=== PATIENT | male | born 1990 | race Caucasian/White ===

== ENCOUNTER 2016-08-20 20:38 | Inpatient (IN) | payer OTHER ==
--- NOTE | 2016-08-20 21:44 | HP ---
COWS - Scale Resting Pulse: 2= [place] 101-120 Sweatin=Flushed/Facial Moisture Restless Observation: 3= Extraneous Movement Pupil Size: 1= Pupils >than Normal Bone or Joint Aches: 1= Mild Discomfort Runny Nose/ Eye Tearin= Runny Nose/Eyes GI Upset > 30mins: 3= Vomiting/Diarrhea Tremor Observation: 1= Tremor [place], Not Seen Yawning Observation: 1= 1-2x During Session Anxiety or Irritability: 2=Irritable/Anxious Goose Flesh Skin: 0=Smooth Skin COWS Score: 18 Admission ROS S - HPI Chief Complaint: C/O WITHDRAWAL SX'S. SEEKING DETOX TXMENT Allergies/Adverse Reactions: Allergies Allergy/AdvReac Type Severity Reaction Status Date / Time No Known Drug Allergies Allergy Verified 08/20/16 21:38 bee stung Allergy Uncoded 08/20/16 21:38 History of Present Illness: 25 Y.O MALE WITH OPIOID/CANNABIS DEPENDENCE ADMITTED FOR DETOX. CLIENT IS KNOWN TO [facility]. SELF REFERRED. REPORTS LONGEST CLEAN TIME 3 YEARS. Exam Limitations: No Limitations - Ebola screening Have you traveled outside of the country in the last 21 days: No (N) Have you had contact with anyone from an Ebola affected area: No Do you have a fever: No - Review of Systems Constitutional: Loss of Appetite, Malaise, Night Sweats, Changes in sleep EENT: reports: Nose Congestion Respiratory: reports: No Symptoms reported Cardiac: reports: No Symptoms Reported GI: reports: Constipated, Nausea, Poor Appetite, Vomiting : reports: Other (HESISTANT) Musculoskeletal: reports: Back Pain, Joint Pain Integumentary: reports: Other (BURN ON FACE NOW SCABBED) Neuro: reports: No Symptoms reported Endocrine: reports: No Symptoms Reported Hematology: reports: No Symptoms Reported Psychiatric: reports: Anxious Other Systems: Reviewed and Negative Patient History - Patient Medical History Hx Anemia: No Hx Asthma: No Hx Chronic Obstructive Pulmonary Disease (COPD): No Hx Cancer: No Hx Cardiac Disorders: No Hx Congestive Heart Failure: No Hx Hypertension: No Hx Hypercholesterolemia: No Hx Pacemaker: No HX Cerebrovascular Accident: No Hx Seizures: No Hx Dementia: No Hx Diabetes: No Hx Gastrointestinal Disorders: No Hx Liver Disease: No Hx Genitourinary Disorders: No Hx Sexually Transmitted Disorders: No Hx Renal Disease (ESRD): No Hx Thyroid Disease: No Hx Human Immunodeficiency Virus (HIV): No Hx Hepatitis C: No Hx Depression: Yes Hx Suicide Attempt: No Hx Bipolar Disorder: No Hx Schizophrenia: No Other Medical History: SOCIAL ANXIETY, ADD - Patient Surgical History Past Surgical History: Yes Hx Orthopedic Surgery: Yes (BILAT KNEE REPLACEMENT L ARM SX) Anesthesia Reaction: No - PPD History Previous Implant?: Yes Documented Results: Negative w/proof Implanted On Prior [facility] Admission?: Yes Date: 12/04/15 Results: 0MM PPD to be Administered?: No - Smoking Cessation Smoking history: Current every day smoker Have you smoked in the past 12 months: Yes Aproximately how many cigarettes per day: 20 Cigars Per Day: 0 Hx Chewing Tobacco Use: No Initiated information on smoking cessation: Yes 'Breaking Loose' booklet given: 08/20/16 - Substance & Tx. History Hx Alcohol Use: No Hx Substance Use: Yes Substance Use Type: Heroin, Marijuana Hx Substance Use Treatment: Yes ([facility]) - Substances Abused HEROIN Route: Injection Frequency: Daily Amount used: 1 BUNDLE Age of first use: 20 Date of Last Use: 08/18/16 THC Route: Smoking Frequency: Daily Amount used: 1 GM Age of first use: 14 Date of Last Use: 08/18/16 Family Disease History - Family Disease History Family History: Denies Admission Physical Exam [facility] - Physical General Appearance: Yes: Disheveled, Tremorous, Anxious HEENTM: Yes: EOMI, Normocephalic, AKASH, Pharynx Normal Respiratory: Yes: Chest Non-Tender, Lungs Clear, Normal Breath Sounds, No Respiratory Distress, No Accessory Muscle Use Neck: Yes: No masses,lesions,Nodules, Supple, Trachea in good position Breast: Yes: Breast Exam Deferred Cardiology: Yes: Regular Rhythm, Regular Rate, S1, S2 Abdominal: Yes: Normal Bowel Sounds, Non Tender, Soft Genitourinary: Yes: Within Normal Limits Back: Yes: Normal Inspection Musculoskeletal: Yes: full range of Motion, Gait Steady Extremities: Yes: Normal Capillary Refill, Normal Range of Motion, Non-Tender, Tremors 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 intact, Fully Oriented, Alert, Motor Strength 5/5 Integumentary: Yes: Warm, Moist, Track Herman, Other (FLUSHED FACE SCATTERED ABRASIONS TO FACE ARMS AND LEGS) Lymphatic: Yes: Within Normal Limits - Diagnostic (1) Cannabis dependence Current Visit: Yes Status: Chronic (2) Opioid dependence with withdrawal Current Visit: Yes Status: Chronic (3) Nicotine dependence Current Visit: Yes Status: Chronic Qualifiers: Nicotine product type: cigarettes Substance use status: uncomplicated Qualified Code(s): F17.210 - Nicotine dependence, cigarettes, uncomplicated Cleared for Admission [facility] - Detox or Rehab S Level of Care: Medically Managed Detox Regimen/Protocol: Methadone [facility] Breath Alcohol Content Breath Alcohol Content: 0 Vital Signs - Vital Signs Vital Signs Refused: No Temperature: 99 F Temperature Source: Oral Pulse Rate: 101 Respiratory Rate: 20 Blood Pressure: 131/84 BP Location: Left Arm Blood Pressure Position: Sitting - Height Height: 6 ft - Weight Weight: 113.398 kg Weight Measurement Method: Stated by Patient Body Mass Index (BMI): 33.9 Urine Drug Screen - Test Device Lot Number: [id number] Expiration Date: 06/03/18 - Control Is Test Valid: Yes - Results Drug Screen Negative: No Urine Drug Screen Results: THC-Marijuana, OPI-Opiates
[2016-08-20 21:55] VITALS: BMI 33.9
[2016-08-20] MEDS ORDERED: LOPERAMIDE HCL 2 MG CAPSULE PO PRN (22:07)
[2016-08-20] MEDS ORDERED: P-EPHED 60MG/TRIPROLIDI 2.5MG TABLET PO PRN (22:07)
[2016-08-20] MEDS ORDERED: ACETAMINOPHEN 325 MG TABLET (FP) PO PRN (22:07)
[2016-08-20] MEDS ORDERED: METHADONE HCL 10 MG TABLET (FOR DETOX USE ONLY) PO ONE ×2 (22:07→23:00)
[2016-08-20] MEDS ORDERED: MENTHOL/PHENOL 1 EACH UD MM PRN (22:07)
[2016-08-20] MEDS ORDERED: diphenhydrAMINE HCL 50 MG CAPSULE PO PRN (22:07)
[2016-08-20] MEDS ORDERED: NICOTINE POLACRILEX 2 MG GUM BC PRN (22:07)
[2016-08-20] MEDS ORDERED: IBUPROFEN 400 MG TABLET (FP) PO PRN (22:07)
[2016-08-20] MEDS ORDERED: MAGNESIUM CITRATE 300 ML BOTTLE PO PRN (22:07)
[2016-08-20] MEDS ORDERED: guaiFENesin/D-METHORPHAN HB 10 ML UNIT-DOSE CUPS PO PRN (22:07)
[2016-08-20] MEDS ORDERED: MAGNESIUM HYDROX 2400MG/30ML ORAL SUSPENSION 30 ML CUP PO PRN (22:07)
[2016-08-20] MEDS ORDERED: MAG HYDROX/AL HYDROX/SIMETH 30 ML UNIT-DOSE CUP PO PRN (22:07)
[2016-08-20] MEDS: diazePAM 5 MG TABLET PO PRN (23:21)
[2016-08-21] MEDS: diazePAM 5 MG TABLET PO PRN ×5 (05:37→23:33)
--- NOTE | 2016-08-21 09:15 | CONSULT ---
[facility] Psychiatric Consult - Data Date of interview: 08/21/16 Admission source: Laura-referred Identifying data: Mr Clay is a 25 years old single male, unemployed supported by family, homeless seeking detox treatment for heroin and marijuana Substance Abuse History: Reports history of heroin and marijuana use. Started smoking marijuana at age 14, consumes one gram daily. Last smoked on 08/18/16 Medical History: Significant for orthsurgery for bilateral knee replacement and left arm. Smokes cigarettes 1ppd Psychiatric History: Reports being diagnosed with ADHD, MDD and Social Anxiety Disorder as a child. Reports one previous brief(15 hrs) psychiatric admission in early 2016 at [facility] for overdose on heroin. Claims that he was discharged after he was able to convince them that the overdose was accidental not to kil self as girlfriend wanted them to believe. Claims that he received treatment with Adderall and Paxil CR in the past. At present, reports feeling anxious and sleeping poorly. Physical/Sexual Abuse/Trauma History: Denies history of emotional, physical or sexual abuse as well as DV relationship Additional Comment: Reports history of multiple arrests including one felony conviction. Claims that felony was cleared out of his record. denies Mental Status Exam - Mental Status Exam Alert and Oriented to: Time, Place, Person Cognitive Function: Fair Patient Appearance: Well Groomed Mood: Anxious Affect: Appropriate Patient Behavior: Cooperative Speech Pattern: Clear Voice Loudness: Normal Thought Process: Intact, Goal Oriented Hallucinations: Denies Suicidal Ideation: Denies Homicidal Ideation: Denies Insight/Judgement: Poor Sleep: Poorly Appetite: Good Muscle strength/Tone: Normal Gait/Station: Normal Psychiatric Findings - Problem List ([place] 1, 2,3) (1) ADHD Current Visit: Yes Status: Acute (2) MDD (major depressive disorder) Current Visit: Yes Status: Acute (3) Social anxiety disorder of childhood Current Visit: Yes Status: Acute (4) Opioid dependence with withdrawal Current Visit: Yes Status: Chronic (5) Cannabis dependence Current Visit: Yes Status: Chronic (6) Nicotine dependence Current Visit: Yes Status: Chronic Qualifiers: Nicotine product type: cigarettes Substance use status: uncomplicated Qualified Code(s): F17.210 - Nicotine dependence, cigarettes, uncomplicated - Initial Treatment Plan Initial Treatment Plan: Continue inpatient detoxification
[2016-08-21] MEDS ORDERED: METHADONE HCL 10 MG TABLET (FOR DETOX USE ONLY) PO ONE (10:00)
[2016-08-21] MEDS: NICOTINE 21 MG/24 HOURS TOPICAL PATCH TD SCH (10:02)
[2016-08-21] MEDS: PRENATAL VITAMINS W/ FOLIC ACID TABLET (FP) PO SCH (10:02)
[2016-08-21] MEDS ORDERED: ZOLPIDEM TARTRATE 5 MG TABLET PO PRN (10:20)
--- NOTE | 2016-08-21 10:21 | EKG ---
Test Reason : Blood Pressure : / mmHG Vent. Rate : 093 BPM Atrial Rate : 093 BPM P-R Int : 162 ms QRS Dur : 102 ms QT Int : 354 ms P-R-T Axes : 069 -04 034 degrees QTc Int : 440 ms NORMAL SINUS RHYTHM POSSIBLE LEFT ATRIAL ENLARGEMENT INCOMPLETE RIGHT BUNDLE BRANCH BLOCK LEFT VENTRICULAR HYPERTROPHY ABNORMAL ECG NO PREVIOUS ECGS AVAILABLE Confirmed by VINCENT PALMER MD ([id number]) on 08/21/2016 10:21:29 AM Referred By: Confirmed By:VINCENT PALMER MD
[2016-08-21 10:29] LABS: MCH 29.1 pg (25.7-33.7); MCHC 33.2 g/dl (32.0-35.9); MEAN CELL VOLUME 87.8 fl (80-96); MEAN PLT VOLUME 9.2 fl (7.5-11.1); PLATELET COUNT 180 K/MM3 (134-434); RDW 13.5 % (11.9-15.9); WHITE BLOOD COUNT 8.1 K/mm3 (4.0-10.0)
[2016-08-21 10:37] LABS: ALBUMIN 4.1 g/dl (3.4-5.0); ANION GAP 8 (8-16); CALCIUM 8.6 mg/dL (8.5-10.1); CO2 34 mmol/L (21-32); GLUCOSE,RANDOM 109 mg/dL (74-106)
[2016-08-21 10:41] LABS: ALK PHOS 56 U/L (45-117); BILIRUBIN,TOTAL 0.8 mg/dL (0.2-1.0); CREATININE 0.7 mg/dL (0.7-1.3); SGOT/AST 66 U/L (15-37); SGPT/ALT 134 U/L (12-78)
[2016-08-21] MEDS ORDERED: POTASSIUM CHLORIDE TABS 20 MEQ TABLET.ER (FP) PO ONE (15:15)
--- NOTE | 2016-08-21 15:15 | PN ---
[facility] COWS - Scale Resting Pulse: 0= [place] 80 or Below Sweatin=Flushed/Facial Moisture Restless Observation: 3= Extraneous Movement Pupil Size: 0= Normal to Room Light Bone or Joint Aches: 2= Severe Diffuse Aches Runny Nose/ Eye Tearin= Runny Nose/Eyes GI Upset > 30mins: 2= Nausea/Diarrhea Tremor Observation of Outstretched Hands: 2= Slight Tremor Visible Yawning Observation: 1= 1-2x During Session Anxiety or Irritability: 2=Irritable/Anxious Goose Flesh Skin: 0=Smooth Skin COWS Score: 16 BHS Progress Note (SOAP) Subjective: Nausea, diarrhea, anxious, sweating, interrupted sleep Objective: 08/21/16 15:12 Last Vital Signs Temp Pulse Resp BP Pulse Ox 98.1 F 64 18 118/74 08/21/16 13:23 08/21/16 13:23 08/21/16 13:23 08/21/16 13:23 Laboratory Tests 08/21/16 08/21/16 08/21/16 07:50 07:50 07:50 WBC 8.1 RBC 4.96 Hgb 14.4 Hct 43.5 MCV 87.8 MCHC 33.2 RDW 13.5 Plt Count 180 MPV 9.2 Sodium 136 Potassium 3.4 L Chloride 94 L Carbon Dioxide 34 H D Anion Gap 8 BUN 7 D Creatinine 0.7 Creat Clearance w eGFR > 60 Random Glucose 109 H Calcium 8.6 Total Bilirubin 0.8 D AST 66 H D ALT 134 H D Alkaline Phosphatase 56 Total Protein 7.0 Albumin 4.1 RPR Titer Nonreactive Labs noted: K 3.4 Assessment: 08/21/16 15:13 Withdrawal symptoms Noted with mild hypokalemia Plan: Continue detox Mild hypokalemia: K DUR 40 meq x 1 dose
[2016-08-21 20:12] LABS: URINE APPEARANCE CLEAR; URINE BILIRUBIN NEGATIVE (NEGATIVE); URINE BLOOD NEGATIVE (NEGATIVE); URINE COLOR LTYELLOW; URINE GLUCOSE (UA) NEGATIVE (NEGATIVE); URINE KETONE NEGATIVE (NEGATIVE); URINE LEUK ESTERASE NEGATIVE (NEGATIVE); URINE NITRITE NEGATIVE (NEGATIVE); URINE PROTEIN NEGATIVE (NEGATIVE); URINE UROBILINOGEN NEGATIVE E.U./dl (0.2-1.0)
[2016-08-21] MEDS ORDERED: THIAMINE HCL 100 MG TABLET (FP) PO SCH (22:00)
[2016-08-22] MEDS: diazePAM 5 MG TABLET PO PRN ×2 (07:37→12:16)
[2016-08-22] MEDS ORDERED: METHADONE HCL 5 MG TABLET (FOR DETOX USE ONLY) PO ONE (10:00)
[2016-08-22] MEDS: PRENATAL VITAMINS W/ FOLIC ACID TABLET (FP) PO SCH (10:06)
[2016-08-22] MEDS: NICOTINE 21 MG/24 HOURS TOPICAL PATCH TD SCH (10:08)
[2016-08-22] MEDS ORDERED: ONDANSETRON *ODT* 4 MG TABLET SL PRN (11:25)
--- NOTE | 2016-08-22 11:28 | PN ---
S COWS - Scale Resting Pulse: 0= [place] 80 or Below Sweatin=Flushed/Facial Moisture Restless Observation: 1= Difficult to Sit Still Pupil Size: 0= Normal to Room Light Bone or Joint Aches: 2= Severe Diffuse Aches Runny Nose/ Eye Tearin= Runny Nose/Eyes GI Upset > 30mins: 2= Nausea/Diarrhea Tremor Observation of Outstretched Hands: 2= Slight Tremor Visible Yawning Observation: 1= 1-2x During Session Anxiety or Irritability: 2=Irritable/Anxious Goose Flesh Skin: 0=Smooth Skin COWS Score: 14 S Progress Note (SOAP) Subjective: Anxiety,tremors,sweating,interrupted sleep,nausea,restless,muscle aches. Objective: 08/22/16 11:27 Vital Signs - 8 hr 08/22/16 08/22/16 08/22/16 03:30 07:36 09:53 Temperature 97.9 F 96.8 F L Pulse Rate 47 L 73 Respiratory 18 18 20 Rate Blood Pressure 119/77 125/71 Laboratory Tests 08/21/16 08/21/16 08/21/16 07:50 07:50 07:50 WBC 8.1 RBC 4.96 Hgb 14.4 Hct 43.5 MCV 87.8 MCHC 33.2 RDW 13.5 Plt Count 180 MPV 9.2 Sodium 136 Potassium 3.4 L Chloride 94 L Carbon Dioxide 34 H D Anion Gap 8 BUN 7 D Creatinine 0.7 Creat Clearance w eGFR > 60 Random Glucose 109 H Calcium 8.6 Total Bilirubin 0.8 D AST 66 H D ALT 134 H D Alkaline Phosphatase 56 Total Protein 7.0 Albumin 4.1 Urine Color Urine Appearance Urine pH Ur Specific [place] Urine Protein Urine Glucose (UA) Urine Ketones Urine Blood Urine Nitrite Urine Bilirubin Urine Urobilinogen Ur Leukocyte Esterase RPR Titer Nonreactive 08/21/16 13:11 WBC RBC Hgb Hct MCV MCHC RDW Plt Count MPV Sodium Potassium Chloride Carbon Dioxide Anion Gap BUN Creatinine Creat Clearance w eGFR Random Glucose Calcium Total Bilirubin AST ALT Alkaline Phosphatase Total Protein Albumin Urine Color Ltyellow Urine Appearance Clear Urine pH 7.0 Ur Specific [place] 1.010 Urine Protein Negative Urine Glucose (UA) Negative Urine Ketones Negative Urine Blood Negative Urine Nitrite Negative Urine Bilirubin Negative Urine Urobilinogen Negative Ur Leukocyte Esterase Negative RPR Titer labs noted K+ 3.4 k-dur started Assessment: 08/22/16 11:28 Withdrawal sx. Plan: Continue detox
[2016-08-22 17:51] VITALS: BP 105/60; PULSE 57; TEMP 98.8
--- NOTE | 2016-08-22 21:21 | DS ---
[facility] Detox Discharge Summary Admission Date: 08/20/16 Discharge Date: 08/22/16 - History Present History: Cannabis Dependence, Opioid Dependence Additional Comments: PATIENT IS VERBALLY ABUSE AGGRESSIVE TOWARD STAFF AND PEERS PHYSICALLY THREATENING TO KILL, FOR THE SAFETY OF STAFF AND DETOX COMMUNITY, ADMINISTRATIVE DISCHARGED - Physical Exam Results Vital Signs: Vital Signs Temperature 98.8 F 08/22/16 17:50 Pulse Rate 57 L 08/22/16 17:50 Respiratory Rate 16 08/22/16 17:50 Blood Pressure 105/60 08/22/16 17:50 O2 Sat by Pulse Oximetry (%) Pertinent Admission Physical Exam Findings: WITHDRAWAL SX Laboratory Last Values WBC 8.1 K/mm3 (4.0-10.0) 08/21/16 07:50 RBC 4.96 M/mm3 (4.00-5.60) 08/21/16 07:50 Hgb 14.4 GM/dL (11.7-16.9) 08/21/16 07:50 Hct 43.5 % (35.4-49) 08/21/16 07:50 MCV 87.8 fl (80-96) 08/21/16 07:50 MCHC 33.2 g/dl (32.0-35.9) 08/21/16 07:50 RDW 13.5 % (11.9-15.9) 08/21/16 07:50 Plt Count 180 K/MM3 (134-434) 08/21/16 07:50 MPV 9.2 fl (7.5-11.1) 08/21/16 07:50 Sodium 136 mmol/L (136-145) 08/21/16 07:50 Potassium 3.4 mmol/L (3.5-5.1) L 08/21/16 07:50 Chloride 94 mmol/L (98-107) L 08/21/16 07:50 Carbon Dioxide 34 mmol/L (21-32) H D 08/21/16 07:50 Anion Gap 8 (8-16) 08/21/16 07:50 BUN 7 mg/dL (7-18) D 08/21/16 07:50 Creatinine 0.7 mg/dL (0.7-1.3) 08/21/16 07:50 Creat Clearance w eGFR > 60 (>60) 08/21/16 07:50 Random Glucose 109 mg/dL (74-106) H 08/21/16 07:50 Calcium 8.6 mg/dL (8.5-10.1) 08/21/16 07:50 Total Bilirubin 0.8 mg/dL (0.2-1.0) D 08/21/16 07:50 AST 66 U/L (15-37) H D 08/21/16 07:50 ALT 134 U/L (12-78) H D 08/21/16 07:50 Alkaline Phosphatase 56 U/L (45-117) 08/21/16 07:50 Total Protein 7.0 g/dl (6.4-8.2) 08/21/16 07:50 Albumin 4.1 g/dl (3.4-5.0) 08/21/16 07:50 Urine Color Ltyellow 08/21/16 13:11 Urine Appearance Clear 08/21/16 13:11 Urine pH 7.0 (5.0-8.0) 08/21/16 13:11 Ur Specific [place] 1.010 (1.005-1.025) 08/21/16 13:11 Urine Protein Negative (NEGATIVE) 08/21/16 13:11 Urine Glucose (UA) Negative (NEGATIVE) 08/21/16 13:11 Urine Ketones Negative (NEGATIVE) 08/21/16 13:11 Urine Blood Negative (NEGATIVE) 08/21/16 13:11 Urine Nitrite Negative (NEGATIVE) 08/21/16 13:11 Urine Bilirubin Negative (NEGATIVE) 08/21/16 13:11 Urine Urobilinogen Negative E.U./dl (0.2-1.0) 08/21/16 13:11 Ur Leukocyte Esterase Negative (NEGATIVE) 08/21/16 13:11 RPR Titer Nonreactive (NONREACTIVE) 08/21/16 07:50 Hepatitis C Antibody >11.0 s/co ratio (0.0-0.9) H 08/21/16 07:50 LAB NOTED - Treatment Hospital Course: Detox Protocol Followed, Responded well - Medication Discharge Medications: Ambulatory Orders Quetiapine Fumarate [Seroquel] 100 tab PO HS #30 tablet 12/02/15 - Diagnosis (1) Opioid dependence with withdrawal Status: Acute - AMA Did Patient Leave Against Medical Advice: No
[2016-08-23] MEDS ORDERED: METHADONE HCL 5 MG TABLET (FOR DETOX USE ONLY) PO ONE (10:00)
[2016-08-24] MEDS ORDERED: METHADONE HCL 10 MG TABLET (FOR DETOX USE ONLY) PO ONE (10:00)
[2016-08-25 00:06] LABS: HCV LOG 10 5.991 (.)
[2016-08-25] MEDS ORDERED: METHADONE HCL 5 MG TABLET (FOR DETOX USE ONLY) PO ONE (06:00)
== END 2016-08-22 18:15 | disposition home or self-care (01) | DRG 773 ==
LOC: YASAS 20:38 → Y3N 21:45
PROVIDERS: ADMIT Internal Medicine; ATTEND Internal Medicine
PROC: HZ2ZZZZ Detoxification Services for Substance Abuse Treatment (ICD-10-PCS; principal; 2016-08-20)
DX: F11.23 Opioid dependence with withdrawal (principal); F12.20 Cannabis dependence, uncomplicated; F17.210 Nicotine dependence, cigarettes, uncomplicated; F33.9 Major depressive disorder, recurrent, unspecified; F90.9 Attention-deficit hyperactivity disorder, unspecified type; F91.8 Other conduct disorders; F40.10 Social phobia, unspecified; E87.6 Hypokalemia; Z96.653 Presence of artificial knee joint, bilateral
CPT/HCPCS: 36415; 80053; 81003; 85027; 86593; 86803; 87522; 93005; 93010

== ENCOUNTER 2016-12-05 16:25 | Inpatient (IN) | payer OTHER ==
[2016-12-05 17:51] VITALS: BMI 31.6
[2016-12-05] MEDS ORDERED: diazePAM 5 MG TABLET PO SCH (22:00)
--- NOTE | 2016-12-05 22:51 | HP ---
COWS - Scale Resting Pulse: 0= [place] 80 or Below Sweatin=Flushed/Facial Moisture Restless Observation: 5= Unable to Sit Still Pupil Size: 1= Pupils >than Normal Bone or Joint Aches: 4=Acute Joint/Muscle Pain Runny Nose/ Eye Tearin= None GI Upset > 30mins: 3= Vomiting/Diarrhea Tremor Observation: 2= Slight Tremor Visible Yawning Observation: 0= None Anxiety or Irritability: 2=Irritable/Anxious Goose Flesh Skin: 0=Smooth Skin COWS Score: 19 CIWA Score - CIWA Score Nausea/Vomitin Muscle Tremors: 4-Moderate,w/Arms Extend Anxiety: 4-Mod. Anxious/Guarded Agitation: 4-Moderately Restless Paroxysmal Sweats: 3 Orientation: 0-Oriented Tacttile Disturbances: 0-None Auditory Disturbances: 0-None Visual Disturbances: 0-None Headache: 4-Moderately Severe CIWA-Ar Total Score: 22 Admission ROS S - HPI Chief Complaint: C/O ALCOHOL AND BENZO WITHDRAWAL. SEEKING DETOX TXMENT Allergies/Adverse Reactions: Allergies Allergy/AdvReac Type Severity Reaction Status Date / Time No Known Drug Allergies Allergy Verified 12/05/16 21:27 bee stung Allergy Uncoded 12/05/16 21:27 History of Present Illness: 26 Y.O. MALE WITH EXTENSIVE H/O OF SUBSTANCE ABUSE ADMITTED FOR ALCOHOLISM AND BENZO DEPENDENCE. SELF REFERRED. 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 DENIES ANY RECENT DETOX/ REHAB SERVICES DETOX: MORE THAN 10 X REHAB: MORE THAN 10 X Exam Limitations: No Limitations - Ebola screening Have you traveled outside of the country in the last 21 days: No Have you had contact with anyone from an Ebola affected area: No Have you been sick,other than usual withdrawal symptoms: No Do you have a fever: No - Review of Systems Constitutional: Chills, Loss of Appetite, Malaise, Night Sweats, Changes in sleep EENT: reports: No Symptoms Reported Respiratory: reports: No Symptoms reported Cardiac: reports: No Symptoms Reported GI: reports: Diarrhea, Nausea, Poor Appetite : reports: No Symptoms Reported Musculoskeletal: reports: Other (GENERALIZED BODY ACHES) Integumentary: reports: Other (BRUISING TO STRENUM) Neuro: reports: No Symptoms reported Endocrine: reports: No Symptoms Reported Hematology: reports: No Symptoms Reported Psychiatric: reports: Anxious Other Systems: Reviewed and Negative Patient History - Patient Medical History Hx Anemia: No Hx Asthma: No Hx Chronic Obstructive Pulmonary Disease (COPD): No Hx Cancer: No Hx Cardiac Disorders: No Hx Congestive Heart Failure: No Hx Hypertension: No Hx Hypercholesterolemia: No Hx Pacemaker: No HX Cerebrovascular Accident: No Hx Seizures: No Hx Dementia: No Hx Diabetes: No Hx Gastrointestinal Disorders: No Hx Liver Disease: No Hx Genitourinary Disorders: No Hx Sexually Transmitted Disorders: No Hx Renal Disease (ESRD): No Hx Thyroid Disease: No Hx Human Immunodeficiency Virus (HIV): No Hx Hepatitis C: No Hx Depression: Yes (NO MGMT) Hx Suicide Attempt: No Hx Bipolar Disorder: No Hx Schizophrenia: No - Patient Surgical History Past Surgical History: Yes Hx Neurologic Surgery: No Hx Cataract Extraction: No Hx Cardiac Surgery: No Hx Lung Surgery: No Hx Breast Surgery: No Hx Breast Biopsy: No Hx Abdominal Surgery: No Hx Appendectomy: No Hx Cholecystectomy: No Hx Genitourinary Surgery: No Hx Section: No Hx Orthopedic Surgery: Yes (BILAT KNEE REPLACEMENT L ARM SX) Anesthesia Reaction: No - PPD History Previous Implant?: Yes Documented Results: Negative w/o proof Date: 12/04/15 Results: 0MM PPD to be Administered?: Yes - Smoking Cessation Smoking history: Current every day smoker Have you smoked in the past 12 months: Yes Aproximately how many cigarettes per day: 20 Cigars Per Day: 0 Hx Chewing Tobacco Use: No Initiated information on smoking cessation: Yes 'Breaking Loose' booklet given: 12/05/16 - Substance & Tx. History Hx Alcohol Use: No Hx Substance Use: Yes Substance Use Type: Heroin, Tranquilizers (XANAX) Hx Substance Use Treatment: Yes ([facility]) - Substances Abused Heroin Route: Injection Frequency: Daily Amount used: 10 bags Age of first use: 20 Date of Last Use: 12/04/16 Alprazolam (Xanax) Route: Oral Frequency: Daily Amount used: 2.5mg Age of first use: 20 Date of Last Use: 12/04/16 Family Disease History - Family Disease History Family History: Denies Admission Physical Exam BHS - Vital Signs Vital Signs: Vital Signs - 24 hr 12/05/16 17:45 Temperature 97.2 F L Pulse Rate 73 Respiratory 18 Rate Blood Pressure 120/66 - Physical General Appearance: Yes: Appropriately Dressed, Mild Distress, Tremorous, Sweating, Anxious HEENTM: Yes: EOMI, Normocephalic, Normal Voice, Pharynx Normal Respiratory: Yes: Chest Non-Tender, Lungs Clear, Normal Breath Sounds, No Respiratory Distress, No Accessory Muscle Use Neck: Yes: No masses,lesions,Nodules, Supple, Trachea in good position Breast: Yes: Breast Exam Deferred Cardiology: Yes: Regular Rhythm, Regular Rate, S1, S2 Abdominal: Yes: Normal Bowel Sounds, Non Tender, Soft Genitourinary: Yes: Within Normal Limits Back: Yes: Within Normal Limits Musculoskeletal: Yes: full range of Motion, Gait Steady Extremities: Yes: Normal Capillary Refill, Non-Tender, Tremors Neurological: Yes: Fully Oriented, Alert, Motor Strength 5/5 Integumentary: Yes: Warm, Moist, Track Herman Lymphatic: Yes: Within Normal Limits - Diagnostic (1) Opioid dependence with withdrawal Current Visit: Yes Status: Chronic (2) Uncomplicated sedative, hypnotic or anxiolytic withdrawal Current Visit: Yes Status: Chronic (3) Nicotine dependence Current Visit: Yes Status: Chronic Qualifiers: Nicotine product type: cigarettes Substance use status: uncomplicated Qualified Code(s): F17.210 - Nicotine dependence, cigarettes, uncomplicated; F17.210 - Nicotine dependence, cigarettes, uncomplicated Cleared for Admission [facility] - Detox or Rehab [facility] Level of Care: Medically Managed Detox Regimen/Protocol: Methadone/Valium [facility] Breath Alcohol Content Breath Alcohol Content: 0 Urine Drug Screen - Results Drug Screen Negative: No Urine Drug Screen Results: THC-Marijuana, OPI-Opiates, BZO-Benzodiazepines, OXY- Oxycodone
[2016-12-05] MEDS ORDERED: MENTHOL/PHENOL 1 EACH UD MM PRN (22:55)
[2016-12-05] MEDS ORDERED: guaiFENesin/D-METHORPHAN HB 10 ML UNIT-DOSE CUPS PO PRN (22:55)
[2016-12-05] MEDS ORDERED: diazePAM 5 MG TABLET PO ONE (22:55)
[2016-12-05] MEDS ORDERED: METHADONE HCL 10 MG TABLET (FOR DETOX USE ONLY) PO ONE ×2 (22:55→23:00)
[2016-12-05] MEDS ORDERED: ACETAMINOPHEN 325 MG TABLET (FP) PO PRN (22:55)
[2016-12-05] MEDS ORDERED: MAGNESIUM CITRATE 300 ML BOTTLE PO PRN (22:55)
[2016-12-05] MEDS ORDERED: MAG HYDROX/AL HYDROX/SIMETH 30 ML UNIT-DOSE CUP PO PRN (22:55)
[2016-12-05] MEDS ORDERED: IBUPROFEN 400 MG TABLET (FP) PO PRN (22:55)
[2016-12-05] MEDS ORDERED: MAGNESIUM HYDROX 2400MG/30ML ORAL SUSPENSION 30 ML CUP PO PRN (22:55)
[2016-12-05] MEDS ORDERED: diazePAM 5 MG TABLET PO PRN (22:55)
[2016-12-05] MEDS ORDERED: NICOTINE POLACRILEX 2 MG GUM BC PRN (22:55)
[2016-12-05] MEDS ORDERED: hydrOXYzine PAMOATE 50 MG CAPSULE (FP) PO PRN (22:55)
[2016-12-05] MEDS ORDERED: P-EPHED 60MG/TRIPROLIDI 2.5MG TABLET PO PRN (22:55)
[2016-12-05] MEDS ORDERED: LOPERAMIDE HCL 2 MG CAPSULE PO PRN (22:55)
[2016-12-06] MEDS ORDERED: METHADONE HCL 10 MG TABLET (FOR DETOX USE ONLY) PO ONE ×3 (00:35→23:00)
[2016-12-06] MEDS ORDERED: diazePAM 5 MG TABLET PO ONE (00:35)
[2016-12-06 01:10] LABS: URINE APPEARANCE CLEAR; URINE BILIRUBIN NEGATIVE (NEGATIVE); URINE BLOOD NEGATIVE (NEGATIVE); URINE COLOR YELLOW; URINE GLUCOSE (UA) NEGATIVE (NEGATIVE); URINE KETONE NEGATIVE (NEGATIVE); URINE LEUK ESTERASE NEGATIVE (NEGATIVE); URINE NITRITE NEGATIVE (NEGATIVE); URINE PROTEIN NEGATIVE (NEGATIVE); URINE UROBILINOGEN NEGATIVE mg/dL (0.2-1.0)
[2016-12-06] MEDS: diphenhydrAMINE HCL 50 MG CAPSULE PO PRN ×2 (01:10→22:07)
[2016-12-06] MEDS: diazePAM 5 MG TABLET PO SCH ×3 (07:22→22:07)
[2016-12-06 09:45] LABS: MCH 28.5 pg (25.7-33.7); MEAN CELL VOLUME 86.4 fl (80-96); MEAN PLT VOLUME 9.1 fl (7.5-11.1); RDW 13.4 % (11.9-15.9); WHITE BLOOD COUNT 7.7 K/mm3 (4.0-10.0)
[2016-12-06] MEDS ORDERED: METHADONE HCL 10 MG TABLET (FOR DETOX USE ONLY) PO SCH (10:00)
[2016-12-06 10:01] LABS: ALBUMIN 3.6 g/dl (3.4-5.0); ALK PHOS 74 U/L (45-117); ANION GAP 7 (8-16); BILIRUBIN,TOTAL 0.3 mg/dL (0.2-1.0); CALCIUM 8.7 mg/dL (8.5-10.1); CO2 29 mmol/L (21-32); CREATININE 0.8 mg/dL (0.7-1.3); GLUCOSE,RANDOM 94 mg/dL (74-106); SGOT/AST 38 U/L (15-37); SGPT/ALT 57 U/L (12-78); TOT PROT 6.9 g/dl (6.4-8.2)
[2016-12-06] MEDS: NICOTINE 21 MG/24 HOURS TOPICAL PATCH TD SCH (10:05)
[2016-12-06] MEDS: PRENATAL VITAMINS W/ FOLIC ACID TABLET (FP) PO SCH (10:05)
[2016-12-06] MEDS: diazePAM 5 MG TABLET PO PRN ×2 (10:05→18:49)
[2016-12-06 11:41] LABS: PLATELET COMMENT2 NO CLUMPING NOTED; PLATELET COUNT 236 K/MM3 (134-434); PLATELET ESTIMATE ADEQUATE (NORMAL)
--- NOTE | 2016-12-06 12:24 | PN ---
[facility] CIWA - CIWA Score Nausea/Vomitin-No Nausea/No Vomiting Muscle Tremors: 4-Moderate,w/Arms Extend Anxiety: 4-Mod. Anxious/Guarded Agitation: 4-Moderately Restless Paroxysmal Sweats: 1-Minimal Palms Moist Orientation: 0-Oriented Tacttile Disturbances: 3-Moderate Itch/Numb/Burn Auditory Disturbances: 0-None Visual Disturbances: 0-None Headache: 0-None Present CIWA-Ar Total Score: 16 S COWS - Scale Resting Pulse: 1= [place] 81-100 Sweatin= Chills/Flushing Restless Observation: 3= Extraneous Movement Pupil Size: 2= Moderately Dilated Bone or Joint Aches: 4=Acute Joint/Muscle Pain Runny Nose/ Eye Tearin= Nasal Congestion GI Upset > 30mins: 1= Stomach Cramp Tremor Observation of Outstretched Hands: 1= Tremor [place], Not Seen Yawning Observation: 2= >3x During Session Anxiety or Irritability: 2=Irritable/Anxious Goose Flesh Skin: 0=Smooth Skin COWS Score: 18 [facility] Progress Note (SOAP) Subjective: "I AM DOPE SICK". C/O ANXIETY,SWEATS,HOT/COLD FLASHES,DIARRHEA. Objective: 12/06/16 12:23 Vital Signs Temperature 96.8 F L 12/06/16 09:10 Pulse Rate 81 12/06/16 09:10 Respiratory Rate 18 12/06/16 09:10 Blood Pressure 114/64 12/06/16 09:10 O2 Sat by Pulse Oximetry (%) Laboratory Last Values WBC 7.7 K/mm3 (4.0-10.0) 12/06/16 08:00 RBC 4.67 M/mm3 (4.00-5.60) 12/06/16 08:00 Hgb 13.3 GM/dL (11.7-16.9) 12/06/16 08:00 Hct 40.4 % (35.4-49) 12/06/16 08:00 MCV 86.4 fl (80-96) 12/06/16 08:00 MCH 28.5 pg (25.7-33.7) 12/06/16 08:00 MCHC 33.0 g/dl (32.0-35.9) 12/06/16 08:00 RDW 13.4 % (11.9-15.9) 12/06/16 08:00 Plt Count 236 K/MM3 (134-434) D 12/06/16 08:00 MPV 9.1 fl (7.5-11.1) 12/06/16 08:00 Platelet Estimate Adequate (NORMAL) 12/06/16 08:00 Platelet Comment No clotting detected 12/06/16 08:00 Platelet Comment No clumping noted 12/06/16 08:00 Sodium 136 mmol/L (136-145) 12/06/16 08:00 Potassium 3.5 mmol/L (3.5-5.1) 12/06/16 08:00 Chloride 100 mmol/L (98-107) 12/06/16 08:00 Carbon Dioxide 29 mmol/L (21-32) 12/06/16 08:00 Anion Gap 7 (8-16) L 12/06/16 08:00 BUN 7 mg/dL (7-18) 12/06/16 08:00 Creatinine 0.8 mg/dL (0.7-1.3) 12/06/16 08:00 Creat Clearance w eGFR > 60 (>60) 12/06/16 08:00 Random Glucose 94 mg/dL (74-106) 12/06/16 08:00 Calcium 8.7 mg/dL (8.5-10.1) 12/06/16 08:00 Total Bilirubin 0.3 mg/dL (0.2-1.0) D 12/06/16 08:00 AST 38 U/L (15-37) H D 12/06/16 08:00 ALT 57 U/L (12-78) D 12/06/16 08:00 Alkaline Phosphatase 74 U/L (45-117) D 12/06/16 08:00 Total Protein 6.9 g/dl (6.4-8.2) 12/06/16 08:00 Albumin 3.6 g/dl (3.4-5.0) 12/06/16 08:00 Urine Color Yellow 12/05/16 00:05 Urine Appearance Clear 12/05/16 00:05 Urine pH 6.0 (5.0-8.0) 12/05/16 00:05 Ur Specific [place] 1.010 (1.005-1.025) 12/05/16 00:05 Urine Protein Negative (NEGATIVE) 12/05/16 00:05 Urine Glucose (UA) Negative (NEGATIVE) 12/05/16 00:05 Urine Ketones Negative (NEGATIVE) 12/05/16 00:05 Urine Blood Negative (NEGATIVE) 12/05/16 00:05 Urine Nitrite Negative (NEGATIVE) 12/05/16 00:05 Urine Bilirubin Negative (NEGATIVE) 12/05/16 00:05 Urine Urobilinogen Negative mg/dL (0.2-1.0) 12/05/16 00:05 RPR Titer Nonreactive (NONREACTIVE) 12/06/16 08:00 Assessment: 12/06/16 12:23 WITHDRAWAL SX Plan: CONTINUE DETOX
--- NOTE | 2016-12-06 19:43 | CONSULT ---
[facility] Psychiatric Consult - Data Date of interview: 12/06/16 Admission source: [facility] Identifying data: Readmission to [facility] for this 26 y/o male seeking detox treatment on for heroin,cocaine,benzodiazepine and marijuana dependence.Patient is single,a father of one,domiciled,unemployed and dependent on his family for financial support. Substance Abuse History: Confirmed by patient in this session. Smoking Cessation. Smoking history: Current every day smoker. Have you smoked in the past 12 months: Yes. Aproximately how many cigarettes per day: 20. Cigars Per Day: 0. Hx Chewing Tobacco Use: No. Initiated information on smoking cessation : Yes. 'Breaking Loose' booklet given: 12/05/16. - Substance & Tx. History. Hx Alcohol Use: No. Hx Substance Use: Yes. Substance Use Type: Heroin, Tranquilizers (XANAX). Hx Substance Use Treatment: Yes ([facility]). - Substances Abused. Heroin. Route: Injection. Frequency: Daily. Amount used: 10 bags. Age of first use: 20. Date of Last Use: 12/04/16. Alprazolam (Xanax). Route: Oral. Frequency: Daily. Amount used: 2.5mg. Age of first use: 20. Date of Last Use: 12/04/16 Medical History: History of bilateral knee replacement. Psychiatric History: Patient denies history of psychiatric hospitalizations.Marginally cooperative historian.Mr Clay is already known to this facility (seen by [facility] psychiatrists on 12/01/16 + 08/21/16).Denies history of suicide attempts. Physical/Sexual Abuse/Trauma History: Denies. Additional Comment: Urine Drug Screen Results: THC-Marijuana, OPI-Opiates, BZO- Benzodiazepines, OXY-Oxycodone.Noted. Mental Status Exam - Mental Status Exam Alert and Oriented to: Time, Place, Person Cognitive Function: Good Patient Appearance: Well Groomed Mood: Withdrawn, Irritable Affect: Mood Congruent Patient Behavior: Fatigued, Uncooperative Speech Pattern: Clear Voice Loudness: Normal Thought Process: Intact, Goal Oriented Hallucinations: Denies Suicidal Ideation: Denies Homicidal Ideation: Denies Insight/Judgement: Poor Sleep: Fair Appetite: Good Muscle strength/Tone: Normal Gait/Station: Normal Psychiatric Findings - Problem List ([place] 1, 2,3) (1) Opioid dependence with withdrawal Current Visit: Yes Status: Acute (2) Uncomplicated sedative, hypnotic or anxiolytic withdrawal Current Visit: Yes Status: Acute (3) Cannabis dependence Current Visit: Yes Status: Acute (4) Nicotine dependence Current Visit: Yes Status: Acute Qualifiers: Nicotine product type: cigarettes Substance use status: in withdrawal Qualified Code(s): F17.213 - Nicotine dependence, cigarettes, with withdrawal; F17.213 - Nicotine dependence, cigarettes, with withdrawal (5) Substance induced mood disorder Current Visit: Yes Status: Acute - Initial Treatment Plan Initial Treatment Plan: Psychoeducation.Detoxification in progress.Observation.
--- NOTE | 2016-12-06 20:40 | EKG ---
Test Reason : Blood Pressure : / mmHG Vent. Rate : 069 BPM Atrial Rate : 069 BPM P-R Int : 198 ms QRS Dur : 106 ms QT Int : 376 ms P-R-T Axes : 039 015 026 degrees QTc Int : 402 ms SINUS RHYTHM WITH MARKED SINUS ARRHYTHMIA OTHERWISE NORMAL ECG WHEN COMPARED WITH ECG OF 20-AUG-2016 21:37, INCOMPLETE RIGHT BUNDLE BRANCH BLOCK IS NO LONGER PRESENT CLINICAL CORRELATION IS RECOMMENDED Confirmed by DARIANA OLIVAS MD ([id number]) on 12/06/2016 8:40:25 PM Referred By: Rojelio Alexander Confirmed By:DARIANA OLIVAS MD
[2016-12-06] MEDS: THIAMINE HCL 100 MG TABLET (FP) PO SCH (22:08)
[2016-12-07] MEDS: diazePAM 5 MG TABLET PO SCH ×3 (05:58→22:07)
[2016-12-07] MEDS ORDERED: diazePAM 5 MG TABLET PO SCH (10:00)
[2016-12-07] MEDS ORDERED: METHADONE HCL 5 MG TABLET (FOR DETOX USE ONLY) PO SCH (10:00)
[2016-12-07] MEDS ORDERED: METHADONE HCL 10 MG TABLET (FOR DETOX USE ONLY) PO SCH (10:00)
[2016-12-07] MEDS: PRENATAL VITAMINS W/ FOLIC ACID TABLET (FP) PO SCH (10:06)
[2016-12-07] MEDS: diazePAM 5 MG TABLET PO PRN ×2 (10:06→17:54)
[2016-12-07] MEDS: NICOTINE 21 MG/24 HOURS TOPICAL PATCH TD SCH (10:43)
--- NOTE | 2016-12-07 11:43 | PN ---
[facility] CIWA - CIWA Score Nausea/Vomitin-No Nausea/No Vomiting Muscle Tremors: 4-Moderate,w/Arms Extend Anxiety: 4-Mod. Anxious/Guarded Agitation: 4-Moderately Restless Paroxysmal Sweats: 1-Minimal Palms Moist Orientation: 0-Oriented Tacttile Disturbances: 3-Moderate Itch/Numb/Burn Auditory Disturbances: 0-None Visual Disturbances: 0-None Headache: 0-None Present CIWA-Ar Total Score: 16 S COWS - Scale Resting Pulse: 0= [place] 80 or Below Sweatin= Chills/Flushing Restless Observation: 3= Extraneous Movement Pupil Size: 2= Moderately Dilated Bone or Joint Aches: 4=Acute Joint/Muscle Pain Runny Nose/ Eye Tearin= Runny Nose/Eyes GI Upset > 30mins: 1= Stomach Cramp Tremor Observation of Outstretched Hands: 1= Tremor [place], Not Seen Yawning Observation: 1= 1-2x During Session Anxiety or Irritability: 2=Irritable/Anxious Goose Flesh Skin: 0=Smooth Skin COWS Score: 17 [facility] Progress Note (SOAP) Subjective: C/O "SICK"-ANXIETY,SWEATS/CHILLS,MUSCLE ACHES,TIREDNESS, DECREASED APPETITE. Objective: 12/07/16 11:39 Vital Signs 12/07/16 12/07/16 03:49 06:26 Temperature 96.6 F L Pulse Rate 40 L Respiratory 18 16 Rate Blood Pressure 92/55 Laboratory Last Values WBC 7.7 K/mm3 (4.0-10.0) 12/06/16 08:00 RBC 4.67 M/mm3 (4.00-5.60) 12/06/16 08:00 Hgb 13.3 GM/dL (11.7-16.9) 12/06/16 08:00 Hct 40.4 % (35.4-49) 12/06/16 08:00 MCV 86.4 fl (80-96) 12/06/16 08:00 MCH 28.5 pg (25.7-33.7) 12/06/16 08:00 MCHC 33.0 g/dl (32.0-35.9) 12/06/16 08:00 RDW 13.4 % (11.9-15.9) 12/06/16 08:00 Plt Count 236 K/MM3 (134-434) D 12/06/16 08:00 MPV 9.1 fl (7.5-11.1) 12/06/16 08:00 Platelet Estimate Adequate (NORMAL) 12/06/16 08:00 Platelet Comment No clotting detected 12/06/16 08:00 Platelet Comment No clumping noted 12/06/16 08:00 Sodium 136 mmol/L (136-145) 12/06/16 08:00 Potassium 3.5 mmol/L (3.5-5.1) 12/06/16 08:00 Chloride 100 mmol/L (98-107) 12/06/16 08:00 Carbon Dioxide 29 mmol/L (21-32) 12/06/16 08:00 Anion Gap 7 (8-16) L 12/06/16 08:00 BUN 7 mg/dL (7-18) 12/06/16 08:00 Creatinine 0.8 mg/dL (0.7-1.3) 12/06/16 08:00 Creat Clearance w eGFR > 60 (>60) 12/06/16 08:00 Random Glucose 94 mg/dL (74-106) 12/06/16 08:00 Calcium 8.7 mg/dL (8.5-10.1) 12/06/16 08:00 Total Bilirubin 0.3 mg/dL (0.2-1.0) D 12/06/16 08:00 AST 38 U/L (15-37) H D 12/06/16 08:00 ALT 57 U/L (12-78) D 12/06/16 08:00 Alkaline Phosphatase 74 U/L (45-117) D 12/06/16 08:00 Total Protein 6.9 g/dl (6.4-8.2) 12/06/16 08:00 Albumin 3.6 g/dl (3.4-5.0) 12/06/16 08:00 Urine Color Yellow 12/05/16 00:05 Urine Appearance Clear 12/05/16 00:05 Urine pH 6.0 (5.0-8.0) 12/05/16 00:05 Ur Specific [place] 1.010 (1.005-1.025) 12/05/16 00:05 Urine Protein Negative (NEGATIVE) 12/05/16 00:05 Urine Glucose (UA) Negative (NEGATIVE) 12/05/16 00:05 Urine Ketones Negative (NEGATIVE) 12/05/16 00:05 Urine Blood Negative (NEGATIVE) 12/05/16 00:05 Urine Nitrite Negative (NEGATIVE) 12/05/16 00:05 Urine Bilirubin Negative (NEGATIVE) 12/05/16 00:05 Urine Urobilinogen Negative mg/dL (0.2-1.0) 12/05/16 00:05 RPR Titer Nonreactive (NONREACTIVE) 12/06/16 08:00 Hepatitis C Antibody >11.0 s/co ratio (0.0-0.9) H 12/06/16 08:00 Assessment: 12/07/16 11:40 WITHDRAWAL SX Plan: CONTINUE DETOX INCREASE PO FLUIDS.
[2016-12-07] MEDS ORDERED: ZOLPIDEM TARTRATE 5 MG TABLET PO PRN (15:10)
--- NOTE | 2016-12-07 15:16 | PN ---
[facility] Progress Note Note: Asked to see the patient who is addressing ongoing sleeping difficulties.Patient was seen by psychiatrist yesterday.Attending's notes appreciated.Patient reports good effect from Ambien which has been prescribed to cope with sleeping difficulties in the past. Ambien 5mg po hs prn for insomnia will be started tonight. Will monitor progress.
[2016-12-07] MEDS: THIAMINE HCL 100 MG TABLET (FP) PO SCH (22:07)
[2016-12-08] MEDS: diazePAM 5 MG TABLET PO PRN ×2 (06:15→14:18)
[2016-12-08] MEDS ORDERED: diazePAM 5 MG TABLET PO SCH (10:00)
[2016-12-08] MEDS ORDERED: METHADONE HCL 5 MG TABLET (FOR DETOX USE ONLY) PO SCH (10:00)
[2016-12-08] MEDS: PRENATAL VITAMINS W/ FOLIC ACID TABLET (FP) PO SCH (10:07)
[2016-12-08] MEDS: NICOTINE 21 MG/24 HOURS TOPICAL PATCH TD SCH (10:07)
--- NOTE | 2016-12-08 10:30 | PN ---
S Progress Note (SOAP) Subjective: ALERT O X 3. PT OOB TODAY AMBULATING ON THE UNIT. STATES DECREASED WITHDRAWAL SX. Objective: 12/08/16 10:29 Vital Signs Temperature 97.9 F 12/08/16 08:57 Pulse Rate 76 12/08/16 08:57 Respiratory Rate 18 12/08/16 08:57 Blood Pressure 100/61 12/08/16 08:57 O2 Sat by Pulse Oximetry (%) Laboratory Last Values WBC 7.7 K/mm3 (4.0-10.0) 12/06/16 08:00 RBC 4.67 M/mm3 (4.00-5.60) 12/06/16 08:00 Hgb 13.3 GM/dL (11.7-16.9) 12/06/16 08:00 Hct 40.4 % (35.4-49) 12/06/16 08:00 MCV 86.4 fl (80-96) 12/06/16 08:00 MCH 28.5 pg (25.7-33.7) 12/06/16 08:00 MCHC 33.0 g/dl (32.0-35.9) 12/06/16 08:00 RDW 13.4 % (11.9-15.9) 12/06/16 08:00 Plt Count 236 K/MM3 (134-434) D 12/06/16 08:00 MPV 9.1 fl (7.5-11.1) 12/06/16 08:00 Platelet Estimate Adequate (NORMAL) 12/06/16 08:00 Platelet Comment No clotting detected 12/06/16 08:00 Platelet Comment No clumping noted 12/06/16 08:00 Sodium 136 mmol/L (136-145) 12/06/16 08:00 Potassium 3.5 mmol/L (3.5-5.1) 12/06/16 08:00 Chloride 100 mmol/L (98-107) 12/06/16 08:00 Carbon Dioxide 29 mmol/L (21-32) 12/06/16 08:00 Anion Gap 7 (8-16) L 12/06/16 08:00 BUN 7 mg/dL (7-18) 12/06/16 08:00 Creatinine 0.8 mg/dL (0.7-1.3) 12/06/16 08:00 Creat Clearance w eGFR > 60 (>60) 12/06/16 08:00 Random Glucose 94 mg/dL (74-106) 12/06/16 08:00 Calcium 8.7 mg/dL (8.5-10.1) 12/06/16 08:00 Total Bilirubin 0.3 mg/dL (0.2-1.0) D 12/06/16 08:00 AST 38 U/L (15-37) H D 12/06/16 08:00 ALT 57 U/L (12-78) D 12/06/16 08:00 Alkaline Phosphatase 74 U/L (45-117) D 12/06/16 08:00 Total Protein 6.9 g/dl (6.4-8.2) 12/06/16 08:00 Albumin 3.6 g/dl (3.4-5.0) 12/06/16 08:00 Urine Color Yellow 12/05/16 00:05 Urine Appearance Clear 12/05/16 00:05 Urine pH 6.0 (5.0-8.0) 12/05/16 00:05 Ur Specific [place] 1.010 (1.005-1.025) 12/05/16 00:05 Urine Protein Negative (NEGATIVE) 12/05/16 00:05 Urine Glucose (UA) Negative (NEGATIVE) 12/05/16 00:05 Urine Ketones Negative (NEGATIVE) 12/05/16 00:05 Urine Blood Negative (NEGATIVE) 12/05/16 00:05 Urine Nitrite Negative (NEGATIVE) 12/05/16 00:05 Urine Bilirubin Negative (NEGATIVE) 12/05/16 00:05 Urine Urobilinogen Negative mg/dL (0.2-1.0) 12/05/16 00:05 RPR Titer Nonreactive (NONREACTIVE) 12/06/16 08:00 Hepatitis C Antibody >11.0 s/co ratio (0.0-0.9) H 12/06/16 08:00 PT STATES HE WAS TOLD AT PREVIOUS OCCASION BY ANOTHER FACILITY THAT HIS TEST WAS REACTIVE BUT DID NOT FOLLOW UP FOR FURTHER CONFIRMATORY TEST. PT WAS REMINDED TO FOLLOW UP POST SCREENING WITH HIS PCP. Assessment: 12/08/16 10:29 WITHDRAWAL SX Plan: CONTINUE DETOX
[2016-12-08 12:38] VITALS: BP 109/51; PULSE 58; TEMP 97.8
--- NOTE | 2016-12-08 22:20 | DS ---
[facility] Detox Discharge Summary Admission Date: 12/05/16 Discharge Date: 12/08/16 - History Present History: Opioid Dependence, Sedative Dependence Additional Comments: received nurse call that the patient wants to leave the facility, refuses to wait face to face with the provider Pertinent Past History: withdrawal sx Laboratory Last Values WBC 7.7 K/mm3 (4.0-10.0) 12/06/16 08:00 RBC 4.67 M/mm3 (4.00-5.60) 12/06/16 08:00 Hgb 13.3 GM/dL (11.7-16.9) 12/06/16 08:00 Hct 40.4 % (35.4-49) 12/06/16 08:00 MCV 86.4 fl (80-96) 12/06/16 08:00 MCH 28.5 pg (25.7-33.7) 12/06/16 08:00 MCHC 33.0 g/dl (32.0-35.9) 12/06/16 08:00 RDW 13.4 % (11.9-15.9) 12/06/16 08:00 Plt Count 236 K/MM3 (134-434) D 12/06/16 08:00 MPV 9.1 fl (7.5-11.1) 12/06/16 08:00 Platelet Estimate Adequate (NORMAL) 12/06/16 08:00 Platelet Comment No clotting detected 12/06/16 08:00 Platelet Comment No clumping noted 12/06/16 08:00 Sodium 136 mmol/L (136-145) 12/06/16 08:00 Potassium 3.5 mmol/L (3.5-5.1) 12/06/16 08:00 Chloride 100 mmol/L (98-107) 12/06/16 08:00 Carbon Dioxide 29 mmol/L (21-32) 12/06/16 08:00 Anion Gap 7 (8-16) L 12/06/16 08:00 BUN 7 mg/dL (7-18) 12/06/16 08:00 Creatinine 0.8 mg/dL (0.7-1.3) 12/06/16 08:00 Creat Clearance w eGFR > 60 (>60) 12/06/16 08:00 Random Glucose 94 mg/dL (74-106) 12/06/16 08:00 Calcium 8.7 mg/dL (8.5-10.1) 12/06/16 08:00 Total Bilirubin 0.3 mg/dL (0.2-1.0) D 12/06/16 08:00 AST 38 U/L (15-37) H D 12/06/16 08:00 ALT 57 U/L (12-78) D 12/06/16 08:00 Alkaline Phosphatase 74 U/L (45-117) D 12/06/16 08:00 Total Protein 6.9 g/dl (6.4-8.2) 12/06/16 08:00 Albumin 3.6 g/dl (3.4-5.0) 12/06/16 08:00 Urine Color Yellow 12/05/16 00:05 Urine Appearance Clear 12/05/16 00:05 Urine pH 6.0 (5.0-8.0) 12/05/16 00:05 Ur Specific [place] 1.010 (1.005-1.025) 12/05/16 00:05 Urine Protein Negative (NEGATIVE) 12/05/16 00:05 Urine Glucose (UA) Negative (NEGATIVE) 12/05/16 00:05 Urine Ketones Negative (NEGATIVE) 12/05/16 00:05 Urine Blood Negative (NEGATIVE) 12/05/16 00:05 Urine Nitrite Negative (NEGATIVE) 12/05/16 00:05 Urine Bilirubin Negative (NEGATIVE) 12/05/16 00:05 Urine Urobilinogen Negative mg/dL (0.2-1.0) 12/05/16 00:05 RPR Titer Nonreactive (NONREACTIVE) 12/06/16 08:00 Hepatitis C Antibody >11.0 s/co ratio (0.0-0.9) H 12/06/16 08:00 lab noted - Physical Exam Results Vital Signs: Vital Signs Temperature 97.8 F 12/08/16 12:37 Pulse Rate 58 L 12/08/16 12:37 Respiratory Rate 18 12/08/16 12:37 Blood Pressure 109/51 12/08/16 12:37 O2 Sat by Pulse Oximetry (%) - Treatment Hospital Course: Detox Protocol Followed, Responded well - Medication Discharge Medications: Ambulatory Orders Quetiapine Fumarate [Seroquel] 100 tab PO HS #30 tablet 12/02/15 - Diagnosis (1) Hepatitis C antibody test positive Status: Chronic (2) Nicotine dependence Status: Acute Qualifiers: Nicotine product type: cigarettes Substance use status: in withdrawal Qualified Code(s): F17.213 - Nicotine dependence, cigarettes, with withdrawal; F17.213 - Nicotine dependence, cigarettes, with withdrawal (3) Opioid dependence with withdrawal Status: Acute (4) Uncomplicated sedative, hypnotic or anxiolytic withdrawal Status: Acute - AMA Did Patient Leave Against Medical Advice: Yes
[2016-12-09] MEDS ORDERED: METHADONE HCL 10 MG TABLET (FOR DETOX USE ONLY) PO SCH (10:00)
[2016-12-09] MEDS ORDERED: diazePAM 5 MG TABLET PO SCH (10:00)
[2016-12-10] MEDS ORDERED: METHADONE HCL 5 MG TABLET (FOR DETOX USE ONLY) PO SCH (06:00)
[2016-12-10] MEDS ORDERED: diazePAM 5 MG TABLET PO SCH (10:00)
[2016-12-10] MEDS ORDERED: METHADONE HCL 10 MG TABLET (FOR DETOX USE ONLY) PO SCH (10:00)
[2016-12-11] MEDS ORDERED: METHADONE HCL 5 MG TABLET (FOR DETOX USE ONLY) PO SCH (06:00)
[2016-12-12 00:06] LABS: HCV LOG 10 5.245 (.)
== END 2016-12-08 17:15 | disposition left against medical advice (07) | DRG 770 ==
LOC: YASAS 16:25 → Y3N 21:56
PROVIDERS: ADMIT Internal Medicine; ATTEND Internal Medicine
PROC: HZ2ZZZZ Detoxification Services for Substance Abuse Treatment (ICD-10-PCS; principal; 2016-12-05)
DX: F11.23 Opioid dependence with withdrawal (principal); F13.230 Sedative, hypnotic or anxiolytic dependence with withdrawal, uncomplicated; F12.20 Cannabis dependence, uncomplicated; F17.213 Nicotine dependence, cigarettes, with withdrawal; B18.2 Chronic viral hepatitis C; Z96.653 Presence of artificial knee joint, bilateral; Z91.038 Other insect allergy status
CPT/HCPCS: 36415; 80053; 81003; 85027; 86593; 86803; 87522; 93005; 93010

== ENCOUNTER 2019-04-21 13:52 | Inpatient (IN) | payer OTHER ==
--- NOTE | 2019-04-21 17:13 | BHS.RME ---
Substance Use & Tx History - Substance Use History Opiates (Heroin) Substance amount: 2 bundles Frequency of use: Daily Substance route: Injection (ex: intravenous or skin popping) Date of Last Use: 04/21/19 Benzodiazepines Substance amount: valium 1-2 tabs Frequency of use: Less than 3 times per week Cannabis Substance amount: 1/2 gram Frequency of use: Daily - Last Treatment Where was last treatment: [facility] (was in methadone program in [place]- lost job, lost house and has no insurance for [place]) Physical/Psych/Mental Status - Behavior General Behavior: Increased activity (restlessness, agitation) Eye Contact: Normal - Cooperativeness Cooperativeness: Cooperative - Physical Health Problems Is patient presently having any pain?: No Does patient presently have any injuries (include location): No Does patient currently have a fever: No Is patient : No COWS - Scale Resting Pulse: 2= [place] 101-120 Sweatin= Chills/Flushing Restless Observation: 3= Extraneous Movement Pupil Size: 1= Pupils >than Normal Bone or Joint Aches: 2= Severe Diffuse Aches Runny Nose/ Eye Tearin= Nasal Congestion GI Upset > 30mins: 1= Stomach Cramp Tremor Observation: 1= Tremor [place], Not Seen Yawning Observation: 1= 1-2x During Session Anxiety or Irritability: 1=Feels Anxious/Irritable Goose Flesh Skin: 0=Smooth Skin COWS Score: 14 Treatment Recommendation - Level of Care Level of Care: Acute Medical
--- NOTE | 2019-04-21 19:12 | HP ---
COWS - Scale Resting Pulse: 2= [place] 101-120 Sweatin= Chills/Flushing Restless Observation: 3= Extraneous Movement Pupil Size: 1= Pupils >than Normal Bone or Joint Aches: 2= Severe Diffuse Aches Runny Nose/ Eye Tearin= Nasal Congestion GI Upset > 30mins: 1= Stomach Cramp Tremor Observation: 1= Tremor [place], Not Seen Yawning Observation: 1= 1-2x During Session Anxiety or Irritability: 1=Feels Anxious/Irritable Goose Flesh Skin: 0=Smooth Skin COWS Score: 14 CIWA Score - Admission Criteria OASAS Guidelines: Admission for Medically Managed Detox: Requires at least one of the followin. CIWA greater than 12 2. Seizures within the past 24 hours 3. Delirium tremens within the past 24 hours 4. Hallucinations within the past 24 hours 5. Acute intervention needed for co occurring medical disorder 6. Acute intervention needed for co occurring psychiatric disorder 7. Severe withdrawal that cannot be handled at a lower level of care (continued vomiting, continued diarrhea, abnormal vital signs) requiring intravenous medication and/or fluids 8. Admitting History and Physical - Admission Chief Complaint: i need help to stop using heroin,xanax,marijuana History of Present Illness: this 28 years old male with heroin,.xanax,marijuana dependence,seeking detox, last detox 03/2019 first time to this facility History Source: Patient Limitations to Obtaining History: No Limitations - Past Medical History Psych: Yes: Anxiety (adhd), Depression Dermatology: Yes: Cellulitis (right hand) - Smoking History Smoking history: Current every day smoker Have you smoked in the past 12 months: Yes Aproximately how many cigarettes per day: 20 - Alcohol/Substance Use Hx Alcohol Use: No History of Substance Use: reports: Heroin, Marijuana, Tranquilizers - Social History Usual Living Arrangement: Yes: With Parent Occupation: unemployed History of Recent Travel: No Admission ROS S - HPI Chief Complaint: i need help to stop using heroin,xanax,marijuana Allergies/Adverse Reactions: Allergies Allergy/AdvReac Type Severity Reaction Status Date / Time No Known Drug Allergies Allergy Verified 04/21/19 19:19 bee stung Allergy Uncoded 04/21/19 19:19 History of Present Illness: this 28 years old male with heroin,xanax,marijuana dependence,seeking detox, withdrawal symptom denied seizure denied syncope nicotine 1 pack.day iv drugs users swelling with erythema right hand for 2 days longest period of sobriety for 2 and half years plan for out patient,suboxone Exam Limitations: No Limitations - Ebola screening Have you traveled outside of the country in the last 21 days: No Have you had contact with anyone from an Ebola affected area: No Have you been sick,other than usual withdrawal symptoms: No Do you have a fever: No - Review of Systems Constitutional: Chills, Loss of Appetite, Malaise, Night Sweats, Changes in sleep, Weakness EENT: reports: Tearing, Nose Congestion Respiratory: reports: No Symptoms reported Cardiac: reports: No Symptoms Reported GI: reports: Diarrhea, Nausea, Abdominal cramping : reports: No Symptoms Reported Musculoskeletal: reports: Back Pain, Joint Pain, Muscle Pain Integumentary: reports: Dryness Endocrine: reports: No Symptoms Reported Hematology: reports: No Symptoms Reported Psychiatric: reports: No Sypmtoms Reported, Judgement Intact, Mood/Affect Appropiate, Orientated x3, Anxious, Depressed, other (insomnia) Patient History - Patient Medical History Hx Anemia: No Hx Asthma: No Hx Chronic Obstructive Pulmonary Disease (COPD): No Hx Cancer: No Hx Cardiac Disorders: No Hx Congestive Heart Failure: No Hx Hypertension: No Hx Hypercholesterolemia: No Hx Pacemaker: No HX Cerebrovascular Accident: No Hx Seizures: No Hx Dementia: No Hx Diabetes: No Hx Gastrointestinal Disorders: No Hx Liver Disease: No Hx Genitourinary Disorders: No Hx Sexually Transmitted Disorders: No Hx Renal Disease (ESRD): No Hx Thyroid Disease: No Hx Human Immunodeficiency Virus (HIV): No Hx Hepatitis C: Yes (since 2018 no treatment) Hx Depression: Yes (no medication) Hx Suicide Attempt: No Hx Bipolar Disorder: No Hx Schizophrenia: No Other Medical History: no suicidalno homicidal - Patient Surgical History Past Surgical History: Yes Hx Neurologic Surgery: No Hx Cataract Extraction: No Hx Cardiac Surgery: No Hx Lung Surgery: No Hx Breast Surgery: No Hx Breast Biopsy: No Hx Abdominal Surgery: No Hx Appendectomy: No Hx Cholecystectomy: No Hx Genitourinary Surgery: No Hx Section: No Hx Orthopedic Surgery: Yes (BILAT KNEE SURGERY, L ARM SX) Anesthesia Reaction: No - PPD History Previous Implant?: Yes Documented Results: Negative w/o proof Implanted On Prior R Admission?: Yes Date: 12/09/16 Results: 0MM PPD to be Administered?: Yes - Smoking Cessation Smoking history: Current every day smoker Have you smoked in the past 12 months: Yes Aproximately how many cigarettes per day: 20 Cigars Per Day: 0 Hx Chewing Tobacco Use: No Initiated information on smoking cessation: Yes 'Breaking Loose' booklet given: 04/21/19 - Substance & Tx. History Hx Alcohol Use: No Hx Substance Use: Yes Substance Use Type: Heroin, Marijuana, Tranquilizers Hx Substance Use Treatment: Yes ([place] 03/2019) - Substances abused Heroin Substance route: Injection Frequency: Daily Amount used: 20 bags Age of first use: 18 Date of last use: 04/21/19 Alprazolam (Xanax) Substance route: Oral Frequency: 3-6 times per week Amount used: 4 mgs Age of first use: 14 Date of last use: 04/20/19 Marijuana/Hashish Substance route: Smoking Frequency: Daily Amount used: 1/2 gram Age of first use: 14 Date of last use: 04/20/19 Admission Physical Exam S - Vital Signs Vital Signs: Vital Signs Temperature 98.0 F 04/21/19 19:21 Pulse Rate 57 L 04/21/19 19:21 Respiratory Rate 18 04/21/19 19:21 Blood Pressure 108/51 L 04/21/19 19:21 O2 Sat by Pulse Oximetry (%) - Physical General Appearance: Yes: Moderate Distress, Tremorous, Irritable, Sweating, Anxious HEENTM: Yes: Normal ENT Inspection, AKASH, Pharynx Normal Respiratory: Yes: Lungs Clear, Normal Breath Sounds, No Respiratory Distress Neck: Yes: Within Normal Limits, No masses,lesions,Nodules, Supple, Trachea in good position Breast: Yes: Within Normal Limits Cardiology: Yes: Within Normal Limits, Regular Rhythm, Regular Rate, S1, S2 Abdominal: Yes: Within Normal Limits, Normal Bowel Sounds, Non Tender, Flat, Soft Genitourinary: Yes: Within Normal Limits Back: Yes: Muscle Spasm Musculoskeletal: Yes: full range of Motion, Back pain, Joint Stiffness, Muscle Pain Extremities: Yes: Within Normal Limits, Normal Range of Motion, Tremors Neurological: Yes: smash piecer II-XII NML intact, Fully Oriented, Alert, Motor Strength 5/5 Integumentary: Yes: Dry, Track Herman (cellulitis of right hand) Lymphatic: Yes: Within Normal Limits Cleared for Admission S - Detox or Rehab [facility] Level of Care: Medically Managed Detox Regimen/Protocol: Methadone/Valium Breathalyzer - Breathalyzer Breathalyzer: 0 Urine Drug Screen - Test Device Lot number: [id number] Expiration date: 01/28/21 - Control Is test valid?: Yes - Results Drug screen NEGATIVE: No Urine drug screen results: THC-Marijuana, FEN-Fentanyl, MOP-Opiates, BZO- Benzodiazepines Inpatient Rehab Admission - Rehab Decision to Admit Inpatient rehab admission?: No
[2019-04-21] MEDS ORDERED: MAG HYDROX/AL HYDROX/SIMETH 30 ML UNIT-DOSE CUP PO PRN (19:29)
[2019-04-21] MEDS ORDERED: IBUPROFEN 400 MG TABLET (FP) PO PRN (19:29)
[2019-04-21] MEDS ORDERED: MENTHOL/PHENOL 1 EACH UD MM PRN (19:29)
[2019-04-21] MEDS ORDERED: NICOTINE POLACRILEX 2 MG GUM BUC PRN (19:29)
[2019-04-21] MEDS ORDERED: BISMUTH SUBSALICYLATE 524 MG/30 ML UD PO PRN (19:29)
[2019-04-21] MEDS ORDERED: cloNIDine HCL 0.1 MG TABLET PO PRN (19:29)
[2019-04-21] MEDS ORDERED: hydrOXYzine PAMOATE 25 MG CAPSULE (FP) PO PRN (19:29)
[2019-04-21] MEDS ORDERED: ACETAMINOPHEN 325 MG TABLET (FP) PO PRN ×2 (19:29)
[2019-04-21] MEDS ORDERED: MAGNESIUM HYDROX 2400MG/30ML ORAL SUSPENSION 30 ML CUP PO PRN (19:29)
[2019-04-21] MEDS ORDERED: MAGNESIUM CITRATE 300 ML BOTTLE PO PRN (19:29)
[2019-04-21 19:49] VITALS: BMI 31.4
[2019-04-21] MEDS ORDERED: METHADONE HCL 10 MG TABLET (FOR DETOX USE ONLY) PO ONE (20:00)
[2019-04-21] MEDS: NICOTINE 21 MG/24 HOURS TOPICAL PATCH TD SCH (20:36)
[2019-04-21] MEDS: THIAMINE HCL 100 MG TABLET (FP) PO SCH (22:38)
[2019-04-21] MEDS: MELATONIN 5 MG TABLETS PO PRN (22:38)
[2019-04-21] MEDS: diazePAM 5 MG TABLET PO SCH (22:38)
[2019-04-21] MEDS: METHOCARBAMOL 500 MG TABLET PO PRN (22:39)
[2019-04-21] MEDS: CEPHALEXIN MONOHYDRATE 500 MG CAPSULE (UD) PO SCH (23:04)
[2019-04-22] MEDS: diazePAM 5 MG TABLET PO SCH ×3 (05:34→22:10)
[2019-04-22] MEDS: CEPHALEXIN MONOHYDRATE 500 MG CAPSULE (UD) PO SCH ×4 (05:34→23:03)
[2019-04-22] MEDS ORDERED: METHADONE HCL 10 MG TABLET (FOR DETOX USE ONLY) ONE (09:48)
[2019-04-22] MEDS ORDERED: METHADONE HCL 5 MG TABLET (FOR DETOX USE ONLY) ONE (09:48)
[2019-04-22] MEDS: PRENATAL VITAMINS W/ FOLIC ACID TABLET (FP) PO SCH (09:58)
[2019-04-22] MEDS: diazePAM 5 MG TABLET PO PRN ×2 (09:59→19:03)
[2019-04-22] MEDS: NICOTINE 21 MG/24 HOURS TOPICAL PATCH TD SCH (09:59)
[2019-04-22] MEDS ORDERED: METHADONE (DETOX) 20 MG, METHADONE (DETOX) 5 MG PO ONE (10:00)
--- NOTE | 2019-04-22 10:34 | PN ---
[facility] CIWA - CIWA Score Nausea/Vomitin-Mild Nausea/No Vomiting Muscle Tremors: 4-Moderate,w/Arms Extend Anxiety: 3 Agitation: 1-Slight > Activity Paroxysmal Sweats: 2 Orientation: 0-Oriented Tacttile Disturbances: 0-None Auditory Disturbances: 0-None Visual Disturbances: 0-None Headache: 1-Very Mild CIWA-Ar Total Score: 12 BHS COWS - Scale Resting Pulse: 0= [place] 80 or Below Sweatin= Chills/Flushing Restless Observation: 0= Sits Still Pupil Size: 1= Pupils >than Normal Bone or Joint Aches: 1= Mild Discomfort Runny Nose/ Eye Tearin= None GI Upset > 30mins: 2= Nausea/Diarrhea Tremor Observation of Outstretched Hands: 2= Slight Tremor Visible Yawning Observation: 0= None Anxiety or Irritability: 2=Irritable/Anxious Goose Flesh Skin: 3=[place] COWS Score: 12 S Progress Note (SOAP) Subjective: 28 years old male admitted on 04/21/19 for benzo and opiate withdrawal sx management treating with valium and methadone detox regiments reports GI distress discontinue motrin begin pepcid 20 mg po bid feelings hot and cold and sweating feeling weak encourage oral fluid "I want my methadone" discuss medication assisted treatment program Objective: 04/22/19 10:40 Vital Signs Temperature 96.6 F L 04/22/19 08:52 Pulse Rate 52 L 04/22/19 08:52 Respiratory Rate 16 04/22/19 08:52 Blood Pressure 100/61 04/22/19 08:52 O2 Sat by Pulse Oximetry (%) 04/22/19 10:41 lab cancelled reorder admission lab work Assessment: 04/22/19 10:41 benzo and opiate withdrawal Plan: valium and methadone regiments
[2019-04-22] MEDS ORDERED: CEPHALEXIN MONOHYDRATE 500 MG CAPSULE (UD) PO SCH (10:35)
--- NOTE | 2019-04-22 12:53 | CONSULT ---
[facility] Psychiatric Consult - Data Date of interview: 04/22/19 Admission source: [facility] Identifying data: Revisit to [facility] and admission to [address] [place] [address] for this 28 y/o male self-referred for detoxification treatment. NIDIA issues : cannabis , heroin, benzodiazepine (xanax), nicotine. Patient is single, father of one, undomiciled (has reportedly been sleeping in his car for past four days), unemployed (recently fired from sleeping on the job, as per self-report), deprived of a source of income and occasionally supported by relatives. Substance Abuse History: Discussed with the patient. Details in current [facility] report as follows : Smoking history: Current every day smoker. Have you smoked in the past 12 months: Yes. Aproximately how many cigarettes per day: 20. Cigars Per Day: 0. Hx Chewing Tobacco Use: No. Initiated information on smoking cessation: Yes. 'Breaking Loose' booklet given: 04/21/19. - Substance & Tx. History. Hx Alcohol Use: No. Hx Substance Use: Yes. Substance Use Type : Heroin, Marijuana, Tranquilizers. Hx Substance Use Treatment: Yes ([place] 03/2019). - Substances abused. Heroin. Substance route: Injection. Frequency: Daily. Amount used: 20 bags. Age of first use: 18. Date of last use: 04/21/19. Alprazolam (Xanax). Substance route: Oral. Frequency: 3-6 times per week. Amount used: 4 mgs. Age of first use: 14. Date of last use: 04/20/19. Marijuana/Hashish. Substance route: Smoking. Frequency: Daily. Amount used: 1/2 gram. Age of first use: 14. Date of last use: 04/20/19 Medical History: Medical profile is remarkable for history of bilateral knee replacement. No known allergies. Psychiatric History: Patient denies history of psychiatric hospitalizations ( observed in CPEP at [facility], in 2016, for drug overdose, and released after 15 hours). Reportedly diagnosed with ADHD , MDD and Social Anxiety Disorder as a child. Past treatment with adderall and paroxetine. Mr Clay admits to total non-adherence to psychiatric OPD care. No contact with psychiatrists. Declares interest for benzodiazepines ONLY. " My main issue is anxiety." No antecedent of suicide attempts. Physical/Sexual Abuse/Trauma History: Patient denies. Additional Comment: Urine drug screen results: THC-Marijuana, FEN-Fentanyl, MOP- Opiates, BZO-Benzodiazepines. Noted. Mental Status Exam - Mental Status Exam Alert and Oriented to: Time, Place, Person Cognitive Function: Good Patient Appearance: Unkempt, Disheveled Mood: Nervous, Withdrawn Affect: Mood Congruent, Constricted Patient Behavior: Fatigued, Cooperative Speech Pattern: Clear Voice Loudness: Normal Thought Process: Intact, Goal Oriented Thought Disorder: Not Present Hallucinations: Denies Suicidal Ideation: Denies Homicidal Ideation: Denies Insight/Judgement: Poor Sleep: Poorly, Difficulty falling asleep (wants to resume seroquel at bedtime) Appetite: Good Gait/Station: Normal Psychiatric Findings - Problem List ([place] 1, 2,3) (1) Opioid dependence with withdrawal Current Visit: Yes Status: Acute (2) Uncomplicated sedative, hypnotic or anxiolytic withdrawal Current Visit: Yes Status: Acute (3) Cannabis dependence Current Visit: Yes Status: Chronic (4) Nicotine dependence Current Visit: Yes Status: Chronic Qualifiers: Nicotine product type: cigarettes Substance use status: in withdrawal Qualified Code(s): F17.213 - Nicotine dependence, cigarettes, with withdrawal (5) Substance induced mood disorder Current Visit: Yes Status: Chronic (6) History of attention deficit hyperactivity disorder (ADHD) Current Visit: Yes Status: Chronic (7) History of anxiety disorder Current Visit: Yes Status: Chronic (8) Insomnia Current Visit: Yes Status: Chronic (9) Non-compliance Current Visit: Yes Status: Chronic Comment: Lost to follow-up care. - Initial Treatment Plan Initial Treatment Plan: Psychoeducation. MAT services revisited with patient. Sleep hygiene. Detoxification. Support. NA meetings. patient wishes to resume seroquel 100 mg po hs. Made aware of risk of sedation, falls, metabolic syndrome and the currently FDA-approved indications of the drug (and off-label utilization). Benefits discussed as well. Mr Clay insists on taking seroquel because of a history of good response/tolerability to that medication. Gave informed consent (verbal) to MD. Zendejas.
[2019-04-22] MEDS: FAMOTIDINE 20 MG TABLET PO SCH ×3 (12:55→22:11)
[2019-04-22 19:29] LABS: URINE APPEARANCE CLEAR; URINE BILIRUBIN NEGATIVE (NEGATIVE); URINE COLOR YELLOW; URINE GLUCOSE (UA) NEGATIVE (NEGATIVE); URINE KETONE NEGATIVE (NEGATIVE); URINE LEUK ESTERASE NEGATIVE (NEGATIVE); URINE NITRITE NEGATIVE (NEGATIVE); URINE PROTEIN NEGATIVE (NEGATIVE); URINE UROBILINOGEN 0.2 mg/dL (0.2-1.0)
[2019-04-22] MEDS: THIAMINE HCL 100 MG TABLET (FP) PO SCH (22:10)
[2019-04-22] MEDS: QUEtiapine FUMARATE 100 MG TABLET (FP) PO SCH (22:11)
[2019-04-23] MEDS: diazePAM 5 MG TABLET PO SCH ×2 (07:53→17:44)
[2019-04-23] MEDS: CEPHALEXIN MONOHYDRATE 500 MG CAPSULE (UD) PO SCH ×4 (07:53→23:19)
[2019-04-23] MEDS ORDERED: METHADONE HCL 10 MG TABLET (FOR DETOX USE ONLY) PO ONE (10:00)
[2019-04-23] MEDS: FAMOTIDINE 20 MG TABLET PO SCH ×2 (11:20→22:34)
[2019-04-23] MEDS: PRENATAL VITAMINS W/ FOLIC ACID TABLET (FP) PO SCH (11:20)
[2019-04-23] MEDS: NICOTINE 21 MG/24 HOURS TOPICAL PATCH TD SCH (11:21)
--- NOTE | 2019-04-23 12:13 | PN ---
[facility] CIWA - CIWA Score Nausea/Vomitin-No Nausea/No Vomiting Muscle Tremors: 3 Anxiety: 2 Agitation: 1-Slight > Activity Paroxysmal Sweats: 2 Orientation: 0-Oriented Tacttile Disturbances: 0-None Auditory Disturbances: 0-None Visual Disturbances: 1-Very Mild Sensitivity Headache: 0-None Present CIWA-Ar Total Score: 9 BHS COWS - Scale Resting Pulse: 0= [place] 80 or Below Sweatin= Chills/Flushing Restless Observation: 0= Sits Still Pupil Size: 1= Pupils >than Normal Bone or Joint Aches: 1= Mild Discomfort Runny Nose/ Eye Tearin= Nasal Congestion GI Upset > 30mins: 1= Stomach Cramp Tremor Observation of Outstretched Hands: 2= Slight Tremor Visible Yawning Observation: 1= 1-2x During Session Anxiety or Irritability: 1=Feels Anxious/Irritable Goose Flesh Skin: 0=Smooth Skin COWS Score: 9 S Progress Note (SOAP) Subjective: 28 years old male admitted on 04/21/19 for benzo and opiate withdrawal sx management treating with valium and methadone detox regiments ate breakfast resting in bed limited conversation with staff "I want my methadone" discuss medication assisted treatment program Objective: 04/23/19 12:13 Vital Signs Temperature 96.8 F L 04/23/19 06:18 Pulse Rate 51 L 04/23/19 06:18 Respiratory Rate 18 04/23/19 06:18 Blood Pressure 99/58 L 04/23/19 06:18 O2 Sat by Pulse Oximetry (%) Laboratory Last Values Urine Color Yellow 04/22/19 15:33 Urine Appearance Clear 04/22/19 15:33 Urine pH 8.0 (5.0-8.0) D 04/22/19 15:33 Ur Specific [place] 1.003 (1.010-1.035) L 04/22/19 15:33 Urine Protein Negative (NEGATIVE) 04/22/19 15:33 Urine Glucose (UA) Negative (NEGATIVE) 04/22/19 15:33 Urine Ketones Negative (NEGATIVE) 04/22/19 15:33 Urine Blood Negative (NEGATIVE) 04/22/19 15:33 Urine Nitrite Negative (NEGATIVE) 04/22/19 15:33 Urine Bilirubin Negative (NEGATIVE) 04/22/19 15:33 Urine Urobilinogen 0.2 mg/dL (0.2-1.0) 04/22/19 15:33 Ur Leukocyte Esterase Negative (NEGATIVE) 04/22/19 15:33 lab noted 04/23/19 12:14 admission lab been cancelled reorder lab admission Assessment: 04/23/19 12:15 benzo and opiate withdrawal Plan: valium and methadone regiments
[2019-04-23] MEDS: THIAMINE HCL 100 MG TABLET (FP) PO SCH (22:33)
[2019-04-23] MEDS: diazePAM 5 MG TABLET PO PRN (22:33)
[2019-04-23] MEDS: QUEtiapine FUMARATE 100 MG TABLET (FP) PO SCH (22:33)
[2019-04-24] MEDS ORDERED: diazePAM 5 MG TABLET PO ONE (06:00)
[2019-04-24] MEDS: CEPHALEXIN MONOHYDRATE 500 MG CAPSULE (UD) PO SCH ×3 (07:39→18:18)
[2019-04-24] MEDS ORDERED: METHADONE HCL 10 MG TABLET (FOR DETOX USE ONLY) ONE (09:25)
[2019-04-24] MEDS ORDERED: METHADONE HCL 5 MG TABLET (FOR DETOX USE ONLY) ONE (09:25)
[2019-04-24] MEDS ORDERED: METHADONE (DETOX) 10 MG, METHADONE (DETOX) 5 MG PO ONE (10:00)
[2019-04-24] MEDS: NICOTINE 21 MG/24 HOURS TOPICAL PATCH TD SCH (10:57)
[2019-04-24] MEDS: PRENATAL VITAMINS W/ FOLIC ACID TABLET (FP) PO SCH (10:57)
[2019-04-24] MEDS: FAMOTIDINE 20 MG TABLET PO SCH ×2 (10:57→22:36)
[2019-04-24] MEDS: diazePAM 5 MG TABLET PO PRN ×3 (10:59→18:17)
--- NOTE | 2019-04-24 12:24 | PN ---
S CIWA - CIWA Score Nausea/Vomitin-No Nausea/No Vomiting Muscle Tremors: 2 Anxiety: 2 Agitation: 0-Normal Activity Paroxysmal Sweats: 2 Orientation: 0-Oriented Tacttile Disturbances: 0-None Auditory Disturbances: 0-None Visual Disturbances: 0-None Headache: 0-None Present CIWA-Ar Total Score: 6 BHS COWS - Scale Resting Pulse: 0= [place] 80 or Below Sweatin= Chills/Flushing Restless Observation: 0= Sits Still Pupil Size: 1= Pupils >than Normal Bone or Joint Aches: 1= Mild Discomfort Runny Nose/ Eye Tearin= Nasal Congestion GI Upset > 30mins: 0= None Tremor Observation of Outstretched Hands: 1= Tremor [place], Not Seen Yawning Observation: 0= None Anxiety or Irritability: 1=Feels Anxious/Irritable Goose Flesh Skin: 0=Smooth Skin COWS Score: 6 S Progress Note (SOAP) Subjective: 28 years old male admitted on 04/21/19 for benzo and opiate withdrawal sx management treating with valium and methadone detox regiments feeling ok today prefers to stay in bed sleeping strong recommend the patient to attend behavior and psychosocial therapies groups and meetings while in detox Objective: 04/24/19 12:26 Vital Signs Temperature 98.4 F 04/24/19 09:29 Pulse Rate 74 04/24/19 09:29 Respiratory Rate 18 04/24/19 09:29 Blood Pressure 101/64 04/24/19 09:29 O2 Sat by Pulse Oximetry (%) Laboratory Last Values Urine Color Yellow 04/22/19 15:33 Urine Appearance Clear 04/22/19 15:33 Urine pH 8.0 (5.0-8.0) D 04/22/19 15:33 Ur Specific [place] 1.003 (1.010-1.035) L 04/22/19 15:33 Urine Protein Negative (NEGATIVE) 04/22/19 15:33 Urine Glucose (UA) Negative (NEGATIVE) 04/22/19 15:33 Urine Ketones Negative (NEGATIVE) 04/22/19 15:33 Urine Blood Negative (NEGATIVE) 04/22/19 15:33 Urine Nitrite Negative (NEGATIVE) 04/22/19 15:33 Urine Bilirubin Negative (NEGATIVE) 04/22/19 15:33 Urine Urobilinogen 0.2 mg/dL (0.2-1.0) 04/22/19 15:33 Ur Leukocyte Esterase Negative (NEGATIVE) 04/22/19 15:33 04/24/19 12:27 admission lab cancelled encourage the patient cooperate with admission lab Assessment: 04/24/19 12:29 benzo and opiate withdrawal Plan: valium and methadone regiments
[2019-04-24] MEDS: METHOCARBAMOL 500 MG TABLET PO PRN (22:36)
[2019-04-24] MEDS: MELATONIN 5 MG TABLETS PO PRN (22:36)
[2019-04-24] MEDS: QUEtiapine FUMARATE 100 MG TABLET (FP) PO SCH (22:36)
[2019-04-24] MEDS: THIAMINE HCL 100 MG TABLET (FP) PO SCH (22:36)
[2019-04-25] MEDS: CEPHALEXIN MONOHYDRATE 500 MG CAPSULE (UD) PO SCH ×3 (00:35→11:55)
[2019-04-25 09:52] VITALS: BP 96/65; PULSE 48; TEMP 98.1
[2019-04-25] MEDS ORDERED: METHADONE HCL 10 MG TABLET (FOR DETOX USE ONLY) PO ONE (10:00)
[2019-04-25] MEDS: FAMOTIDINE 20 MG TABLET PO SCH (10:47)
[2019-04-25] MEDS: PRENATAL VITAMINS W/ FOLIC ACID TABLET (FP) PO SCH (10:48)
[2019-04-25] MEDS: NICOTINE 21 MG/24 HOURS TOPICAL PATCH TD SCH (10:50)
--- NOTE | 2019-04-25 14:42 | DS ---
[facility] Detox Discharge Summary Admission Date: 04/21/19 Discharge Date: 04/25/19 - History Present History: Alcohol Dependence, Sedative Dependence Additional Comments: 28 years old male admitted on 04/21/19 for benzo and opiate withdrawal sx management treated with valium and methadone detox regiment Mr Clay prefers to leave the detox unit one day earlier as estimated discharge day of 04/26/19 feeling better today less tremor mild anxiety and joints ache seen by psychiatrist resume seroquel alert oriented x 3 respiratory clear lungs bilaterally on auscultation abdomen soft round obese no rebound tenderness skin warm and dry Pertinent Past History: time for discharge 48 minutes - Physical Exam Results Vital Signs: Vital Signs Temperature 98.1 F 04/25/19 08:50 Pulse Rate 48 L 04/25/19 08:50 Respiratory Rate 17 04/25/19 08:50 Blood Pressure 96/65 04/25/19 08:50 O2 Sat by Pulse Oximetry (%) Pertinent Admission Physical Exam Findings: benzo and opiate withdrawal Laboratory Last Values Urine Color Yellow 04/22/19 15:33 Urine Appearance Clear 04/22/19 15:33 Urine pH 8.0 (5.0-8.0) D 04/22/19 15:33 Ur Specific [place] 1.003 (1.010-1.035) L 04/22/19 15:33 Urine Protein Negative (NEGATIVE) 04/22/19 15:33 Urine Glucose (UA) Negative (NEGATIVE) 04/22/19 15:33 Urine Ketones Negative (NEGATIVE) 04/22/19 15:33 Urine Blood Negative (NEGATIVE) 04/22/19 15:33 Urine Nitrite Negative (NEGATIVE) 04/22/19 15:33 Urine Bilirubin Negative (NEGATIVE) 04/22/19 15:33 Urine Urobilinogen 0.2 mg/dL (0.2-1.0) 04/22/19 15:33 Ur Leukocyte Esterase Negative (NEGATIVE) 04/22/19 15:33 lab noted - Treatment Hospital Course: Detox Protocol Followed, Detoxed Safely, Responded well, Discharged Condition Good, Rehab Referral Accepted Patient has Accepted a Rehab Referral to: [facility] - Medication Discharge Medications: Ambulatory Orders Quetiapine Fumarate [Seroquel -] 100 tab PO HS #30 tablet 12/02/15 Naloxone HCl [Narcan] 4 mg NS ASDIR PRN #1 spray 04/22/19 - Diagnosis (1) Opioid dependence with withdrawal Status: Acute (2) Uncomplicated sedative, hypnotic or anxiolytic withdrawal Status: Acute (3) Hepatitis C antibody test positive Status: Chronic (4) Nicotine dependence Status: Acute Qualifiers: Nicotine product type: cigarettes Substance use status: in withdrawal Qualified Code(s): F17.213 - Nicotine dependence, cigarettes, with withdrawal (5) Substance induced mood disorder Status: Suspected - AMA Did Patient Leave Against Medical Advice: No CIWA Score - CIWA Score Nausea/Vomitin-No Nausea/No Vomiting Muscle Tremors: 1-None Visible, but [place] Anxiety: 1-Mildly Anxious Agitation: 0-Normal Activity Paroxysmal Sweats: 1-Minimal Palms Moist Orientation: 0-Oriented Tacttile Disturbances: 0-None Auditory Disturbances: 0-None Visual Disturbances: 0-None Headache: 0-None Present CIWA-Ar Total Score: 3 COWS (PN) - Opiate Withdrawal Resting Pulse: 0= [place] 80 or Below Sweatin= No chills or Flushing Restless Observation: 0= Sits Still Pupil Size: 0= Normal to Room Light Bone or Joint Aches: 1= Mild Discomfort Runny Nose/ Eye Tearin= None GI Upset > 30mins: 0= None Tremor Observation of Outstretched Hands: 1= Tremor [place], Not Seen Yawning Observation: 0= None Anxiety or Irritability: 1=Feels Anxious/Irritable Goose Flesh Skin: 0=Smooth Skin COWS Score: 3
[2019-04-26] MEDS ORDERED: METHADONE HCL 5 MG TABLET (FOR DETOX USE ONLY) PO ONE (06:00)
== END 2019-04-25 12:09 | disposition home or self-care (01) | DRG 773 ==
LOC: YASAS 13:52 → Y3N 19:18
PROVIDERS: ADMIT Allergy & Immunology; ATTEND Allergy & Immunology
PROC: HZ2ZZZZ Detoxification Services for Substance Abuse Treatment (ICD-10-PCS; principal; 2019-04-21)
DX: F11.23 Opioid dependence with withdrawal (principal); F13.230 Sedative, hypnotic or anxiolytic dependence with withdrawal, uncomplicated; F12.20 Cannabis dependence, uncomplicated; F17.213 Nicotine dependence, cigarettes, with withdrawal; F19.24 Other psychoactive substance dependence with psychoactive substance-induced mood disorder; F41.9 Anxiety disorder, unspecified; F90.9 Attention-deficit hyperactivity disorder, unspecified type; G47.00 Insomnia, unspecified; B18.2 Chronic viral hepatitis C; Z96.653 Presence of artificial knee joint, bilateral; Z91.19 Patient's noncompliance with other medical treatment and regimen
CPT/HCPCS: 81003